=== PATIENT | male | born 1945 | race Caucasian/White ===

== ENCOUNTER 2016-07-27 07:15 | Day surgery (SDC) | payer MEDICARE, BC ==
--- NOTE | ~2016-07-27 | EGD ---
EGD REPORT [facility] [address] [place] [place] [address] NAME: NGOZI CERVANTES : [birth year] STATUS : REG [facility] PAT#: [id number] AGE: 71 ADM/REG DATE : 07/27/16 MR#: [id number] REPORT SERV DATE: 07/27/16 DICTATED BY: TERRY NGUYEN DATE: 07/27/16 REPORT STATUS : Draft TRANSCRIBED BY: [facility] DATE: 07/27/16 Endoscopy Center Patient Name: Ngozi Cervantes Date of : 1945 Attending MD: TERRY NGUYEN MD Procedure Date No Time: 07/27/2016 Procedure: Upper GI endoscopy Indications: Epigastric abdominal pain, Iron deficiency anemia, Heartburn, Suspected esophageal reflux, Eructation Referring MD: Antoni Wright Medicines: as per anesthesia Complications: No immediate complications. Procedure: After obtaining informed consent, the endoscope was passed under direct vision. Throughout the procedure, the patient's blood pressure, pulse, and oxygen saturations were monitored continuously. The GIF [id number] was introduced through the mouth, and advanced to the third part of duodenum. The upper GI endoscopy was accomplished without difficulty. The patient tolerated the procedure. Findings: There were esophageal mucosal changes suspicious for short-segment Donohue's esophagus present in the lower third of the esophagus. The maximum longitudinal extent of these mucosal changes was 2 cm in length. Mucosa was biopsied with a cold forceps for histology randomly at intervals of 1 cm in the lower third of the esophagus. One specimen bottle was sent to pathology. A few sessile polyps were found in the gastric body. Biopsies were taken with a cold forceps for histology. The cardia and gastric fundus were normal on retroflexion. The examined duodenum was normal. Biopsies were taken with a cold forceps for histology. Impression: - Esophageal mucosal changes suspicious for short-segment Donohue's esophagus. Biopsied. - A few gastric polyps. Biopsied. - Normal examined duodenum. Biopsied. Recommendation: - Await pathology results. Procedure Code(s): --- Professional --- 97157, Esophagogastroduodenoscopy, flexible, transoral; with biopsy, single or multiple EGD REPORT [address] [place] [address] NAME: NGOZI CERVANTES : [birth year] STATUS : REG [facility] PAT#: [id number] AGE: 71 ADM/REG DATE : 07/27/16 MR#: [id number] REPORT SERV DATE: 07/27/16 DICTATED BY: TERRY NGUYEN DATE: 07/27/16 REPORT STATUS : Draft TRANSCRIBED BY: [employer] DATE: 07/27/16 Diagnosis Code(s): --- Professional --- K22.9, Disease of esophagus, unspecified K31.7, Polyp of stomach and duodenum R10.13, Epigastric pain D50.9, Iron deficiency anemia, unspecified R12, Heartburn R14.2, Eructation CPT copyright 2013 [employer]. All rights reserved. The codes documented in this report are preliminary and upon wire communications engineer review may be revised to meet current compliance requirements. TERRY NGUYEN MD 07/27/2016 10:52 AM This report has been signed electronically. Number of Addenda: 0 Note Initiated On: 07/27/2016 10:[address] [place] [id number]
[~2016-07-27 07:15] MED LIST: AFREZZA1 EACH INH; ATEN50 PO; B COMPLETE PO; CARTIA XT300 MG/24 PO; COUMADIN4 MG PO; COZ25 PO; DEMA10T PO; DEPO-TESTOS200 MG/ML IM; FERROUS SULFATE PO; FLOMAX4 PO; FOLBEE PLU1 PO; FOLBEE PO; GLUCOPHAGE1000 MG PO; INVOKANA300 MG PO; JANUVIA100 MG PO; KLOR-CON M2020 MEQ PO; LANTUSCART SC; LIOR10 PO; LOP100 PO; LORT7 PO; METHOC500B PO; MULTIPLE VIT PO; NEUR100 PO; NEUR300 PO; NIASPAN500 PO; NORCO1 TA2 PO; PLAQ200B PO; PRADAXA150 MG PO; PRENAVITE PO; PRILO PO; PRIN10 PO; TIAZA3 PO; TREXALL10 MG PO; VALTREX5 PO; VICTOZA PO; Z10 PO; ZETIA PO; ZOCOR40 PO; [UNRECOGNIZED DRUG - CODE]; [UNRECOGNIZED DRUG - OTHER] INH
== END 2016-07-27 23:59 | disposition home or self-care (01) ==
LOC: DMU 07:15
PROVIDERS: Internal Medicine Gastroenterology
PROC: 0DB58ZX Excision of Esophagus, Via Natural or Artificial Opening Endoscopic, Diagnostic (ICD-10-PCS; 2016-07-27)
PROC: 0DB68ZX Excision of Stomach, Via Natural or Artificial Opening Endoscopic, Diagnostic (ICD-10-PCS; 2016-07-27)
PROC: 0DB98ZX Excision of Duodenum, Via Natural or Artificial Opening Endoscopic, Diagnostic (ICD-10-PCS; principal; 2016-07-27 08:30)
DX: K22.70 Barrett's esophagus without dysplasia (principal); K31.7 Polyp of stomach and duodenum; K22.9 Disease of esophagus, unspecified; I10 Essential (primary) hypertension; G47.33 Obstructive sleep apnea (adult) (pediatric); E11.9 Type 2 diabetes mellitus without complications; M06.9 Rheumatoid arthritis, unspecified; D50.9 Iron deficiency anemia, unspecified; I48.91 Unspecified atrial fibrillation; I71.2 Thoracic aortic aneurysm, without rupture; Z88.0 Allergy status to penicillin; Z90.49 Acquired absence of other specified parts of digestive tract; Z96.653 Presence of artificial knee joint, bilateral; Z98.52 Vasectomy status; Z98.41 Cataract extraction status, right eye; Z98.42 Cataract extraction status, left eye; Z96.1 Presence of intraocular lens; Z79.899 Other long term (current) drug therapy
CPT/HCPCS: 82962; 88305